=== PATIENT | female | born 1965 | race Caucasian/White ===

== ENCOUNTER 2018-12-22 13:39 | Emergency (ER) | payer OTHER, MEDICAID, SELFPAY ==
[2018-12-22 13:43] VITALS: BP 140/108; PULSE 79; RESP 16; TEMP 36.6; O2SAT 98; BMI 40.4
--- NOTE | 2018-12-22 14:14 | DI.RAD.S_ITS ---
PROCEDURE: XR CHEST 1V INDICATIONS: dizzy TECHNIQUE: One view of the chest was acquired. COMPARISON: None. FINDINGS: Surgical changes and devices: None. Lungs and pleura: Lungs are clear. No pleural effusions or pneumothorax. Mediastinum: Mediastinal contours appear normal. Heart size is normal. Bones and chest wall: No suspicious bony lesions. Overlying soft tissues appear unremarkable. IMPRESSION: No acute cardiopulmonary disease process. Dictated by: Betty May MD, PhD on 12/22/2018 at 14:37 Approved by: Betty May MD, PhD on 12/22/2018 at 14:37
[2018-12-22] MEDS: SODIUM CHLORIDE 0.9% 1,000 ML 1000 ML IV ×2 (14:23→15:56)
--- NOTE | 2018-12-22 14:46 | DI.CT.S_ITS ---
PROCEDURE: CT HEAD/BRAIN WO CON INDICATIONS: dizzy x 10 days headache, cancer hx TECHNIQUE: Noncontrast 4.5 mm thick angled axial sections acquired from the foramen magnum to the vertex, with coronal and sagittal reformats. For radiation dose reduction, the following was used: automated exposure control, adjustment of mA and/or kV according to patient size. COMPARISON: None. FINDINGS: Image quality: Excellent. CSF spaces: Basal cisterns are patent. No extra-axial fluid collections. The ventricles are symmetric in size and shape. Brain: No intracranial bleeds or masses. There is cerebral volume loss for age, with resultant ventricular and sulcal prominence. There are periventricular and deep white matter chronic small vessel ischemic changes. There is intracranial internal carotid artery atherosclerosis. Skull and face: Calvarium and visualized facial bones appear intact, without suspicious lesions. Sinuses: Visualized sinuses and mastoids are clear. IMPRESSION: No acute intracranial disease process. Dictated by: Betty May MD, PhD on 12/22/2018 at 14:56 Approved by: Betty May MD, PhD on 12/22/2018 at 14:59
[2018-12-22 14:54] LABS: Add Manual Diff / Slide Review NO; Basophils Absolute Auto 0 /uL (0-100); Basophils Percent Auto 0.9 % (0-2); Eosinophils Absolute Auto 100 /uL (0-450); Eosinophils Percent Auto 1.3 % (2-4); Hematocrit 41.2 % (36-46); Lymphocytes Absolute Auto 1500 /uL (1100-4500); Lymphocytes Percent Auto 26.3 % (25-40); Mean Corpuscular Volume 88.4 fL (80-100); Monocytes Absolute Auto 400 /uL (0-900); Monocytes Percent Auto 6.5 % (3-14); Neutrophils Absolute Auto 3600 /uL (1500-7000); Platelet Count 263 X10^3/uL (150-400); Red Blood Cell Count 4.66 X10^6/uL (4.0-5.2); Red Cell Distribution Width 13.8 % (11.6-14.8); White Blood Cell Count 5.6 X10^3/uL (4.5-11.0)
[2018-12-22 15:04] LABS: INR 0.9 (0.9-1.3); Prothrombin Time 10.2 SECONDS (10.1-12.7)
[2018-12-22 15:06] LABS: PTT Partial Thromboplastin Tim 31 SECONDS (26.4-36.2)
[2018-12-22 15:18] LABS: Alanine Aminotransferase 38 IU/L (9-52); Albumin 4.5 g/dL (3.5-5.0); Albumin Globulin Ratio 1.5 (1.0-2.8); Alkaline Phosphatase 69 U/L (38-126); Amylase 71 U/L (30-110); Aspartate Aminotransferase 31 IU/L (14-36); Bilirubin Total 0.3 mg/dL (0.2-1.3); Blood Urea Nitrogen 12 mg/dL (7-17); Calcium 9.6 mg/dL (8.4-10.2); Carbon Dioxide 26 mmol/L (22-32); Chloride 107 mmol/L (98-107); Creatine Kinase 59 U/L (30-135); Estimated Glomerular Filt Rate > 60.0 mL/min (>60); Globulin 3.1 g/dL (1.7-4.1); Glucose 87 mg/dL (70-100); HEMOLYSIS < 15 (0-50); Lipase 199 U/L (23-300); Potassium 3.8 mmol/L (3.4-5.1); Sodium 142 mmol/L (137-145); Total Protein 7.6 g/dL (6.3-8.2)
[2018-12-22 15:30] VITALS: BP 129/73; PULSE 83; RESP 18; O2SAT 100
[2018-12-22 15:30] LABS: Troponin I < 0.012 ng/mL (0.01-0.034)
[2018-12-22] MEDS: METOCLOPRAMIDE 10 MG/2 ML INJ 5 MG IV (15:44)
[2018-12-22] MEDS: KETOROLAC 60 MG/2 ML VIAL 30 MG IV (15:44)
[2018-12-22] MEDS: diphenhydrAMINE 50 MG/ML VIAL 25 MG IV (15:45)
[2018-12-22 16:02] VITALS: TEMP 36.7
--- NOTE | 2018-12-22 16:18 | ED.DIZZY ---
HPI - Dizziness <IRIS Vasquez-BC - Last Filed: 12/22/18 20:38> General Chief Complaint: Dizziness Stated Complaint: nausea,dizzy,trouble keeping eyes open,fog Time Seen by Provider: 12/22/18 13:55 Source: patient and family Mode of arrival: ambulatory Limitations: no limitations History of Present Illness HPI Narrative: The patient is a 53-year-old female nonsmoker with history of breast cancer who presents with her mother for a chief complaint of various complaints including nausea, dizziness fatigue and foggy brain for the past 10 days. She states it did not improve so she came in today. Of note the patient denies any fevers vomiting or diarrhea. She denies any abdominal pain. She denies any chest pain. She describes the dizziness as a wooziness, especially when she stands up. She denies any spinning sensation. She denies any palpitations. She states she has a quality assurance monitor chassis on as ordered by her primary care physician. She states that she has had several workups for these episodes, including in [place]. She states that she has these episodes of fatigue and brain fogginess every so often and that this is not abnormal for her. The patient denies any head pain, but complains of pressure. She denies any dysuria urgency or frequency. The patient complains of nausea in her chest. She also states that in [place] she took aspirin for this, which made blood and fluid leave her brain, go down her spine and she urinated it out. Related Data Home Medications Medication Instructions Recorded Confirmed anastrozole 1 mg PO DAILY 12/22/18 12/22/18 Allergies Allergy/AdvReac Type Severity Reaction Status Date / Time No Known Drug Allergies Allergy Verified 12/22/18 13:48 Review of Systems <IRIS Vasquez-BC - Last Filed: 12/22/18 20:38> Review of Systems GENERAL: See HPI HEENT: Denies sinus pain, ear pain, sore throat, difficulty swallowing, dizziness. RESPIRATORY: Denies dyspnea, cough, wheezing, hemoptysis, sputum. CARDIOVASCULAR: Denies chest pain, palpitations, orthopnea, edema, GASTROINTESTINAL: Denies nausea, vomiting, abdominal pain, diarrhea, constipation, melena. : Denies dysuria, frequency, incontinence, hematuria, urinary retention. MUSCULOSKELETAL: denies weakness, joint pain, or bony pain SKIN: Denies rash, skin lesions, or other NEUROLOGIC: Denies weakness, headache, numbness, change in speech, confusion, seizures, incoordination. PSYCHIATRIC: No concerning psychosocial issues. 12 point review of systems is negative except for those stated above PFSH <JEREL Vasquez - Last Filed: 12/22/18 20:38> Medical History (Updated 12/22/18 @ 20:34 by JEREL Vasquez) Breast cancer (Acute) Social History Smoking Status: Unknown if ever smoked Social History Smoking Status: Unknown if ever smoked Exam <JEREL Vasquez - Last Filed: 12/22/18 20:38> Narrative Exam Narrative: GENERAL: This is a well-nourished, well-developed patient, no acute distress HEAD: Atraumatic. Normocephalic. No temporal or scalp tenderness. EYES: Pupils equal round and reactive. Extraocular motions intact. No scleral icterus. No injection or drainage. ENT: Nose without bleeding, purulent drainage or septal hematoma. Throat without erythema, tonsillar hypertrophy or exudate. Uvula midline. Airway patent. No nystagmus noted NECK: Trachea midline. No JVD or lymphadenopathy. Supple, nontender, no meningeal signs. CARDIOVASCULAR: Regular rate and rhythm without murmurs, gallops, or rubs. RESPIRATORY: Clear to auscultation. Breath sounds equal bilaterally. No wheezes, rales, or rhonchi. No cough. No increased respiratory effort. No accessory muscle use. GASTROINTESTINAL: Abdomen soft, non-tender, nondistended. No hepato-splenomegaly, or palpable masses. No guarding. EXTREMITIES: No clubbing, cyanosis, or edema. No joint tenderness, effusion, or edema noted. Strength is equal upper and lower extremities bilaterally. Stable gait. BACK: Nontender without deformity or crepitance. No flank tenderness. NEURO: AOx3. Cranial nerves grossly intact. Paige heel test intact. Finger-nose test is intact. Remote and current memory intact. SKIN: No rash or erythema. Initial Vital Signs Initial Vital Signs: Vital Signs Temperature 97.9 F 12/22/18 13:43 Pulse Rate 79 12/22/18 13:43 Respiratory Rate 16 12/22/18 13:43 Blood Pressure 140/108 H 12/22/18 13:43 Pulse Oximetry 98 12/22/18 13:43 <Josselin Arnold MD - Last Filed: 12/22/18 20:50> Initial Vital Signs Initial Vital Signs: Vital Signs Temperature 97.9 F 12/22/18 13:43 Pulse Rate 79 12/22/18 13:43 Respiratory Rate 16 12/22/18 13:43 Blood Pressure 140/108 H 12/22/18 13:43 Pulse Oximetry 98 12/22/18 13:43 Course <JEREL Vasquez - Last Filed: 12/22/18 20:38> Orders Ordered: ED Orders 12/22/18 13:55 EKG-12 Lead Stat 12/22/18 14:14 XR chest 1V Stat 12/22/18 14:46 CT head/brain wo con Stat 12/22/18 14:48 Amylase Stat Complete Blood Count AUTO DIFF Stat Comprehensive Metabolic Panel Stat Lipase Stat Partial Thromboplastin Time Stat Prothrombin Time INR Stat Troponin & CK Cardiac Panel Stat Discontinued Medications Diphenhydramine HCl (Benadryl) 25 mg IV NOW ONE Stop: 12/22/18 15:26 Last Admin: 12/22/18 15:45 Dose: 25 mg Sodium Chloride (Normal Saline 0.9%) 1,000 mls @ 1,000 mls/hr IV BOLUS PRN PRN Reason: Fluid replacement Last Infusion: 12/22/18 15:54 Dose: 0 mls/hr Admin: 12/22/18 14:23 Dose: 1,000 mls/hr Sodium Chloride (Normal Saline 0.9%) 1,000 mls @ 1,000 mls/hr IV BOLUS ONE Stop: 12/22/18 16:24 Last Infusion: 12/22/18 16:37 Dose: 0 mls/hr Admin: 12/22/18 15:56 Dose: 1,000 mls/hr Ketorolac Tromethamine (Toradol) 30 mg IV NOW ONE Stop: 12/22/18 15:26 Last Admin: 12/22/18 15:44 Dose: 30 mg Metoclopramide HCl (Reglan) 5 mg IV NOW ONE Stop: 12/22/18 15:26 Last Admin: 12/22/18 15:44 Dose: 5 mg Ondansetron HCl (Zofran) 4 mg IV NOW ONE Stop: 12/22/18 14:14 Last Admin: 12/22/18 14:24 Dose: Not Given Vital Signs - 8 hr 12/22/18 13:43 12/22/18 15:30 12/22/18 16:02 Temperature 97.9 F 98.0 F Pulse Rate 79 83 Pulse Rate [Orthostatic Lying] Pulse Rate [Orthostatic Sitting] Pulse Rate [Orthostatic Standing] Respiratory Rate 16 18 Blood Pressure 140/108 H Blood Pressure [Left Arm] 129/73 Blood Pressure [Orthostatic Lying] Blood Pressure [Orthostatic Sitting] Blood Pressure [Orthostatic Standing] Pulse Oximetry 98 100 12/22/18 16:34 12/22/18 17:14 Temperature Pulse Rate 73 Pulse Rate [Orthostatic Lying] 97 H Pulse Rate [Orthostatic Sitting] 67 Pulse Rate [Orthostatic Standing] 81 Respiratory Rate 16 Blood Pressure Blood Pressure [Left Arm] 138/85 Blood Pressure [Orthostatic Lying] 131/87 Blood Pressure [Orthostatic Sitting] 149/94 H Blood Pressure [Orthostatic Standing] 155/101 H Pulse Oximetry 99 <Josselin Arnold MD - Last Filed: 12/22/18 20:50> Orders Ordered: ED Orders 12/22/18 13:55 EKG-12 Lead Stat 12/22/18 14:14 XR chest 1V Stat 12/22/18 14:46 CT head/brain wo con Stat 12/22/18 14:48 Amylase Stat Complete Blood Count AUTO DIFF Stat Comprehensive Metabolic Panel Stat Lipase Stat Partial Thromboplastin Time Stat Prothrombin Time INR Stat Troponin & CK Cardiac Panel Stat Discontinued Medications Diphenhydramine HCl (Benadryl) 25 mg IV NOW ONE Stop: 12/22/18 15:26 Last Admin: 12/22/18 15:45 Dose: 25 mg Sodium Chloride (Normal Saline 0.9%) 1,000 mls @ 1,000 mls/hr IV BOLUS PRN PRN Reason: Fluid replacement Last Infusion: 12/22/18 15:54 Dose: 0 mls/hr Admin: 12/22/18 14:23 Dose: 1,000 mls/hr Sodium Chloride (Normal Saline 0.9%) 1,000 mls @ 1,000 mls/hr IV BOLUS ONE Stop: 12/22/18 16:24 Last Infusion: 12/22/18 16:37 Dose: 0 mls/hr Admin: 12/22/18 15:56 Dose: 1,000 mls/hr Ketorolac Tromethamine (Toradol) 30 mg IV NOW ONE Stop: 12/22/18 15:26 Last Admin: 12/22/18 15:44 Dose: 30 mg Metoclopramide HCl (Reglan) 5 mg IV NOW ONE Stop: 12/22/18 15:26 Last Admin: 12/22/18 15:44 Dose: 5 mg Ondansetron HCl (Zofran) 4 mg IV NOW ONE Stop: 12/22/18 14:14 Last Admin: 12/22/18 14:24 Dose: Not Given Vital Signs - 8 hr 12/22/18 13:43 12/22/18 15:30 12/22/18 16:02 Temperature 97.9 F 98.0 F Pulse Rate 79 83 Pulse Rate [Orthostatic Lying] Pulse Rate [Orthostatic Sitting] Pulse Rate [Orthostatic Standing] Respiratory Rate 16 18 Blood Pressure 140/108 H Blood Pressure [Left Arm] 129/73 Blood Pressure [Orthostatic Lying] Blood Pressure [Orthostatic Sitting] Blood Pressure [Orthostatic Standing] Pulse Oximetry 98 100 12/22/18 16:34 12/22/18 17:14 Temperature Pulse Rate 73 Pulse Rate [Orthostatic Lying] 97 H Pulse Rate [Orthostatic Sitting] 67 Pulse Rate [Orthostatic Standing] 81 Respiratory Rate 16 Blood Pressure Blood Pressure [Left Arm] 138/85 Blood Pressure [Orthostatic Lying] 131/87 Blood Pressure [Orthostatic Sitting] 149/94 H Blood Pressure [Orthostatic Standing] 155/101 H Pulse Oximetry 99 MDM - Dizziness <IRIS Vasquez-BC - Last Filed: 12/22/18 20:38> Lab Data Result diagrams: 12/22/18 14:48 12/22/18 14:48 Lab Results 12/22/18 12/22/18 12/22/18 Range/Units 14:48 14:48 14:48 WBC 5.6 (4.5-11.0) X10^3/uL RBC 4.66 (4.0-5.2) X10^6/uL Hgb 14.0 (12.0-16.0) g/dL Hct 41.2 (36-46) % MCV 88.4 (80-100) fL MCH 30.0 (26-34) PG MCHC 34.0 (30-36) % RDW 13.8 (11.6-14.8) % Plt Count 263 (150-400) X10^3/uL Neut % (Auto) 65.0 (50-75) % Lymph % (Auto) 26.3 (25-40) % Garvin % (Auto) 6.5 (3-14) % Eos % (Auto) 1.3 L (2-4) % Baso % (Auto) 0.9 (0-2) % Neut # (Auto) 3600 (5083-6568) /uL Lymph # (Auto) 1500 (2254-3132) /uL Garvin # (Auto) 400 (0-900) /uL Eos # (Auto) 100 (0-450) /uL Baso # (Auto) 0 (0-100) /uL PT 10.2 (10.1-12.7) SECONDS INR 0.9 (0.9-1.3) APTT 31 (26.4-36.2) SECONDS Sodium 142 (137-145) mmol/L Potassium 3.8 (3.4-5.1) mmol/L Chloride 107 (98-107) mmol/L Carbon Dioxide 26 (22-32) mmol/L BUN 12 (7-17) mg/dL Creatinine 0.60 (0.52-1.04) mg/dL Estimated GFR > 60.0 (>60) mL/min BUN/Creatinine Ratio 20.0 (6-22) Glucose 87 (70-100) mg/dL Calcium 9.6 (8.4-10.2) mg/dL Total Bilirubin 0.3 (0.2-1.3) mg/dL AST 31 (14-36) IU/L ALT 38 (9-52) IU/L Alkaline Phosphatase 69 (38-126) U/L Total Creatine Kinase 59 (30-135) U/L CK-MB (CK-2) TNP CK-MB (CK-2) Rel Index TNP Troponin I < 0.012 (0.01-0.034) ng/mL Total Protein 7.6 (6.3-8.2) g/dL Albumin 4.5 (3.5-5.0) g/dL Globulin 3.1 (1.7-4.1) g/dL Albumin/Globulin Ratio 1.5 (1.0-2.8) Amylase 71 (30-110) U/L Lipase 199 (23-300) U/L Urine Dip Bedside Urine Glucose Negative Bedside Urine Bilirubin - Negative Bedside Urine Ketone - Negative Urine Specific [place] 1.010 Bedside Urine Occult Blood - Negative Bedside Urine pH 6.0 Bedside Urine Protein - Negative Bedside Urine Urobilinogen - Negative Bedside Urine Nitrite - Negative Bedside Urine Leukocytes - Negative Esterase Imaging Data CT scan - head: Radiologist's impression: [address] [address] [address] Scan Report Signed Patient: Maria G Fragoso MMR#: [id number] : 1965Acct:[id number] Age/Sex: 53 / FDate of Service: 12/22/18 Loc: ED Accession Number: [id number] Procedure: CT head/brain wo con Ordering Provider: Jessa Malagon- PROCEDURE: CT HEAD/BRAIN WO CON INDICATIONS: dizzy x 10 days headache, cancer hx TECHNIQUE: Noncontrast 4.5 mm thick angled axial sections acquired from the foramen magnum to the vertex, with coronal and sagittal reformats. For radiation dose reduction, the following was used: automated exposure control, adjustment of mA and/or kV according to patient size. COMPARISON: None. FINDINGS: Image quality: Excellent. CSF spaces: Basal cisterns are patent. No extra-axial fluid collections. The ventricles are symmetric in size and shape. Brain: No intracranial bleeds or masses. There is cerebral volume loss for age, with resultant ventricular and sulcal prominence. There are periventricular and deep white matter chronic small vessel ischemic changes. There is intracranial internal carotid artery atherosclerosis. Skull and face: Calvarium and visualized facial bones appear intact, without suspicious lesions. Sinuses: Visualized sinuses and mastoids are clear. IMPRESSION: No acute intracranial disease process. Dictated by: Betty May MD, PhD on 12/22/2018 at 14:56 Approved by: Betty May MD, PhD on 12/22/2018 at 14:59 Chest x-ray: Radiologist's impression: [address] [address] XRay Report Signed Patient: Maria G Fragoso [facility]#: [id number] : 1965Acct:[id number] Age/Sex: 53 / FDate of Service: 12/22/18 Loc: ED Accession Number: [id number] Procedure: XR chest 1V Ordering Provider: Jessa MalagonBC PROCEDURE: XR CHEST 1V INDICATIONS: dizzy TECHNIQUE: One view of the chest was acquired. COMPARISON: None. FINDINGS: Surgical changes and devices: None. Lungs and pleura: Lungs are clear. No pleural effusions or pneumothorax. Mediastinum: Mediastinal contours appear normal. Heart size is normal. Bones and chest wall: No suspicious bony lesions. Overlying soft tissues appear unremarkable. IMPRESSION: No acute cardiopulmonary disease process. Dictated by: Betty May MD, PhD on 12/22/2018 at 14:37 Approved by: Betty May MD, PhD on 12/22/2018 at 14:37 [facility] Narrative Medical decision making narrative: The patient is a 53-year-old female who presents with a chief complaint of various medical complaints for the past 10 days. She complains of nausea, head pressure etc. Given her various complaints including headache for 10 days, brain fog and word searching, I did obtain a head CT especially given her cancer diagnosis. This came back normal. She also had a normal chest x-ray, negative troponin. She declined Zofran for nausea. She was treated with a headache cocktail in the emergency department felt much improved. She has a benign neuro exam, negative imaging and negative lab work. Given that she has these episodes frequently, the last for more than 2 weeks at a time I am more concerned about a chronic etiology given her symptoms. I did discussed at length follow up with primary care provider. Discussed coming back to the emergency department for any acute concerns such as chest pain or shortness of breath. <Josselin Arnold MD - Last Filed: 12/22/18 20:50> Lab Data Lab Results 12/22/18 12/22/18 12/22/18 Range/Units 14:48 14:48 14:48 WBC 5.6 (4.5-11.0) X10^3/uL RBC 4.66 (4.0-5.2) X10^6/uL Hgb 14.0 (12.0-16.0) g/dL Hct 41.2 (36-46) % MCV 88.4 (80-100) fL MCH 30.0 (26-34) PG MCHC 34.0 (30-36) % RDW 13.8 (11.6-14.8) % Plt Count 263 (150-400) X10^3/uL Neut % (Auto) 65.0 (50-75) % Lymph % (Auto) 26.3 (25-40) % Garvin % (Auto) 6.5 (3-14) % Eos % (Auto) 1.3 L (2-4) % Baso % (Auto) 0.9 (0-2) % Neut # (Auto) 3600 (8235-1864) /uL Lymph # (Auto) 1500 (8809-6682) /uL Garvin # (Auto) 400 (0-900) /uL Eos # (Auto) 100 (0-450) /uL Baso # (Auto) 0 (0-100) /uL PT 10.2 (10.1-12.7) SECONDS INR 0.9 (0.9-1.3) APTT 31 (26.4-36.2) SECONDS Sodium 142 (137-145) mmol/L Potassium 3.8 (3.4-5.1) mmol/L Chloride 107 (98-107) mmol/L Carbon Dioxide 26 (22-32) mmol/L BUN 12 (7-17) mg/dL Creatinine 0.60 (0.52-1.04) mg/dL Estimated GFR > 60.0 (>60) mL/min BUN/Creatinine Ratio 20.0 (6-22) Glucose 87 (70-100) mg/dL Calcium 9.6 (8.4-10.2) mg/dL Total Bilirubin 0.3 (0.2-1.3) mg/dL AST 31 (14-36) IU/L ALT 38 (9-52) IU/L Alkaline Phosphatase 69 (38-126) U/L Total Creatine Kinase 59 (30-135) U/L CK-MB (CK-2) TNP CK-MB (CK-2) Rel Index TNP Troponin I < 0.012 (0.01-0.034) ng/mL Total Protein 7.6 (6.3-8.2) g/dL Albumin 4.5 (3.5-5.0) g/dL Globulin 3.1 (1.7-4.1) g/dL Albumin/Globulin Ratio 1.5 (1.0-2.8) Amylase 71 (30-110) U/L Lipase 199 (23-300) U/L Urine Dip Bedside Urine Glucose Negative Bedside Urine Bilirubin - Negative Bedside Urine Ketone - Negative Urine Specific [place] 1.010 Bedside Urine Occult Blood - Negative Bedside Urine pH 6.0 Bedside Urine Protein - Negative Bedside Urine Urobilinogen - Negative Bedside Urine Nitrite - Negative Bedside Urine Leukocytes - Negative Esterase Discharge Plan Departure Patient Disposition: Home Clinical Impression: Dizziness Discharge Date/Time: 12/22/18 17:48 Interventions: ED Discharge Assessment Last Done: 12/22/18 17:47 Instructions: DI for Dizziness-Nonvertigo Activity Restrictions/Additional Instructions: Today we did a head CT and chest x-ray. These both came back normal. We also did lab work to check for a white blood cell count, anemia, electrolytes and your heart. This all came back normal. Please follow up with Dr. Mercer as soon as possible. Please come back to the emergency department for any acute concerns such as chest pain, concern of heart attack or stroke. Please rest and push fluids. Prescriptions: No Action anastrozole 1 mg tablet 1 mg PO DAILY RF: 0 Referrals: Angel Luis Mercer MD [Non-Staff] -
[2018-12-22 16:34] VITALS: BP 138/85; PULSE 73; RESP 16; O2SAT 99
[2018-12-22 17:14] VITALS: BP 131/87; BP 149/94; BP 155/101; PULSE 67; PULSE 81; PULSE 97
== END 2018-12-22 17:48 | disposition home or self-care (01) ==
PROVIDERS: Emergency Provider Nurse Practitioner Family
DX: R42 Dizziness and giddiness (principal); R53.83 Other fatigue; R03.0 Elevated blood-pressure reading, without diagnosis of hypertension; R51 Headache
CPT/HCPCS: 36591; 70450; 71045; 80053; 81003; 82150; 82550; 83690; 84484; 85025; 85610; 85730; 93005; 93010; 93041; 96361; 96374; 96375; 99284; 99285; J1200; J1885; J2405; J2765